=== PATIENT | male | born 1995 | race Caucasian/White ===

== ENCOUNTER 2017-08-14 18:38 | Emergency (ER) | payer MEDICARE, OTHER ==
[~2017-08-14] VITALS: Ht 185.4 cm; Wt 60.0 kg
[~2017-08-14 18:38] MED LIST: BENZ2AMP IM; CITA10SO PO; DIVA250T25 PO; HALO10TA15 PO; HALO5TAB23 PO; LITH300CRT PO; PALI9TAB4 PO
[2017-08-14 18:44] VITALS: BP 130/80
[2017-08-14 19:15] LABS: BASOPHILS % (AUTO) 0.9 % (0.0-2.0); EOSINOPHILS % (AUTO) 2.1 % (1.0-6.0); HEMATOCRIT 44.1 % (41-53); LYMPHOCYTES % (AUTO) 26.2 % (22.0-44.0); MEAN CORPUSCULAR HEMOGLOBIN 30.4 pg (26.0-34.0); MEAN CORPUSCULAR VOLUME 89 fL (80-100); MONOCYTES # (AUTO) 0.4 K/uL (0.1-1.0); MONOCYTES % (AUTO) 5.3 % (2.0-9.0); NEUTROPHILS # (AUTO) 4.9 K/uL (1.8-7.7); NEUTROPHILS % (AUTO) 65.5 % (40.0-70.0); PLATELET COUNT (AUTO) 292 K/uL (150-450); RED BLOOD CELL COUNT(AUTO) 4.94 MIL/uL (4.50-5.90); RED CELL DISTRIBUTION WIDTH 13.8 % (11.5-14.5)
[2017-08-14 19:20] LABS: ANION GAP 8 mmol/L (8-16); CALCIUM, TOTAL 8.9 mg/dL (8.8-10.5); CARBON DIOXIDE 27 mmol/L (22-29); CHLORIDE 109 mmol/L (98-107); CREATININE 0.84 mg/dL (0.60-1.30); GLOMERULAR FILTR. RATE CALC > 60 mL/min (>60); GLUCOSE,RANDOM 113 mg/dL (70-110); POTASSIUM 4.4 mmol/L (3.5-5.1); SODIUM SERUM 144 mmol/L (136-145); UREA NITROGEN, BLOOD 9 mg/dL (7-18)
[2017-08-14 19:26] LABS: ALANINE AMINOTRANSFERASE 27 U/L (12-78); ALBUMIN 3.7 g/dL (3.4-5.0); ALKALINE PHOSPHATASE 104 U/L (46-116); ASPARTATE AMINOTRANSFERASE 12 U/L (15-37); BILIRUBIN,TOTAL 0.3 mg/dL (0.1-1.0); TOTAL PROTEIN, SERUM 6.9 g/dL (6.4-8.2)
[2017-08-14 19:35] LABS: AMPHET/METH SCREEN,URINE NEGATIVE (NEGATIVE); BARBITURATE SCREEN, URINE NEGATIVE (NEGATIVE); BENZODIAZEPINES SCREEN,URINE NEGATIVE (NEGATIVE); CANNABINOID SCREEN,URINE NEGATIVE (NEGATIVE); COCAINE SCREEN,URINE NEGATIVE (NEGATIVE); METHADONE SCREEN, URINE NEGATIVE (NEGATIVE); OPIATE SCREEN,URINE NEGATIVE (NEGATIVE)
[2017-08-14 19:36] LABS: PHENCYCLIDINE SCREEN,URINE NEGATIVE (NEGATIVE)
[2017-08-14] MEDS ORDERED: HALOPERIDOL 5 MG TABLET PO ONE (21:30)
[2017-08-14] MEDS ORDERED: LORazepam 1 MG TABLET PO ONE (21:30)
== END 2017-08-14 22:25 | disposition home or self-care (01) ==
LOC: EMS 18:39
DX: F25.9 Schizoaffective disorder, unspecified (principal); Z91.5 Personal history of self-harm
CPT/HCPCS: 36415; 80053; 80307; 85025; 99284; G0480